=== PATIENT | female | born 1935 | race Caucasian/White ===

== ENCOUNTER 2017-07-30 11:16 | Emergency (ER) | payer MEDICARE ==
[~2017-07-30] VITALS: Ht 167.6 cm; Wt 81.8 kg
[2017-07-30 12:00] LABS: HEMATOCRIT 35.8 % (37.0-47.0); HEMOGLOBIN 11.6 g/dl (12.0-16.0); IMMATURE GRANULOCYTES 0.9 % (0.0-1.0); MEAN CELL VOLUME 93.7 fL CALC (80.0-100.0); MEAN CORPUSCULAR HGB 30.4 pG CALC (26.0-32.0); MEAN CORPUSCULAR HGB CONC 32.4 g/L CALC (32.0-36.0); NEUT# 4.85 thou/uL (2.00-7.15); RED BLOOD COUNT 3.82 mill/uL (4.20-5.60); RED CELL DISTRI WIDTH 13.3 % (11.5-15.5)
[2017-07-30] MEDS ORDERED: ASPIRIN81 MG PO (12:42)
[2017-07-30] MEDS ORDERED: LIPITOR40 M1 PO (12:43)
[2017-07-30] MEDS ORDERED: ATENOLOL50 MG PO (12:43)
[2017-07-30] MEDS ORDERED: BENAZEPRIL10 MG PO (12:44)
[2017-07-30] MEDS ORDERED: CYMBALTA30 MG PO (12:44)
[2017-07-30] MEDS ORDERED: CORRECTOL100 MG PO (12:45)
[2017-07-30] MEDS ORDERED: ROPINIROLE0.5 MG PO (12:46)
[2017-07-30] MEDS ORDERED: MIRTAZAPINE7.5 MG PO (12:46)
[2017-07-30] MEDS ORDERED: VITAMIN C250 MG PO (12:47)
[2017-07-30] MEDS ORDERED: FERROUS SULF325 M3 PO (12:47)
[2017-07-30 13:05] LABS: ALBUMIN 3.4 g/dL (3.2-5.0); ALKALINE PHOSPHATASE 77 u/l (38-126); ANION GAP 15 (6-22 (CALC)); BILIRUBIN, TOTAL 0.3 mg/dL (0.0-1.4); BUN 18 mg/dL (8-23); BUN/CREATININE RATIO 19 (12-20 (CALC)); CARBON DIOXIDE 28 mmol/l (22-30); CHLORIDE 107 mmol/l (95-108); GFR 53 ML/MIN (>=60 (CALC)); GFR FOR AFR.AMER. > 60 ML/MIN (>=60 (CALC)); LIPASE 100 u/l (23-300); MAGNESIUM 1.8 mg/dL (1.6-2.3); POTASSIUM 4.8 mmol/l (3.5-5.1); SGOT/AST 21 u/l (9-36); SGPT/ALT 30 u/l (11-66); SODIUM 145 mmol/l (137-146); TOTAL PROTEIN 6.5 g/dL (6.3-8.2)
[2017-07-30 14:08] VITALS: BP 147/63
== END 2017-07-30 14:06 | disposition home or self-care (01) ==
LOC: ED 11:16
PROVIDERS: Family Medicine
DX: Z03.89 Encounter for observation for other suspected diseases and conditions ruled out (principal); I11.9 Hypertensive heart disease without heart failure; E78.5 Hyperlipidemia, unspecified; F32.9 Major depressive disorder, single episode, unspecified; Z86.73 Personal history of transient ischemic attack (TIA), and cerebral infarction without residual deficits

== ENCOUNTER 2017-08-22 18:06 | Observation (INO) | payer MEDICARE ==
[~2017-08-22] VITALS: Ht 167.6 cm; Wt 70.5 kg
[~2017-08-22 18:06] MED LIST: ASPIRIN81 MG PO; ATENOLOL50 MG PO; BENAZEPRIL10 MG PO; CORRECTOL100 MG PO; CYMBALTA30 MG PO; FERROUS SULF325 M3 PO; LIPITOR40 M1 PO; MIRTAZAPINE7.5 MG PO; ROPINIROLE0.5 MG PO; VITAMIN C250 MG PO
[2017-08-22] MEDS ORDERED: MEMANTINE HCL10 MG PO (18:24)
[2017-08-22] MEDS ORDERED: BENAZEPRIL10 MG PO (18:27)
[2017-08-22 18:40] LABS: HEMATOCRIT 39.5 % (37.0-47.0); HEMOGLOBIN 12.9 g/dl (12.0-16.0); IMMATURE GRANULOCYTES 0.5 % (0.0-1.0); MEAN CELL VOLUME 92.3 fL CALC (80.0-100.0); MEAN CORPUSCULAR HGB 30.1 pG CALC (26.0-32.0); MEAN CORPUSCULAR HGB CONC 32.7 g/L CALC (32.0-36.0); NEUT# 8.15 thou/uL (2.00-7.15); RED BLOOD COUNT 4.28 mill/uL (4.20-5.60); RED CELL DISTRI WIDTH 12.7 % (11.5-15.5)
[2017-08-22 18:57] LABS: ALKALINE PHOSPHATASE 92 u/l (38-126); ANION GAP 18 (6-22 (CALC)); BILIRUBIN, TOTAL 0.4 mg/dL (0.0-1.4); BUN 24 mg/dL (8-23); BUN/CREATININE RATIO 27 (12-20 (CALC)); CARBON DIOXIDE 23 mmol/l (22-30); CHLORIDE 108 mmol/l (95-108); CREATININE 0.9 mg/dL (0.5-1.0); GFR 60 ML/MIN (>=60 (CALC)); GFR FOR AFR.AMER. > 60 ML/MIN (>=60 (CALC)); LIPASE 172 u/l (23-300); POTASSIUM 4.7 mmol/l (3.5-5.1); SGPT/ALT 31 u/l (11-66); SODIUM 144 mmol/l (137-146); TOTAL PROTEIN 7.6 g/dL (6.3-8.2)
[2017-08-22 18:59] LABS: SGOT/AST 37 u/l (9-36)
[2017-08-22 19:40] LABS: URINE BILIRUBIN - DIPSTICK NEGATIVE (NEGATIVE); URINE BLOOD DIPSTICK NEGATIVE (NEGATIVE); URINE COLOR YELLOW; URINE GLUCOSE - DIPSTICK NEGATIVE (NEGATIVE); URINE KETONE NEGATIVE (NEGATIVE); URINE LEUK ESTERASE NEGATIVE (NEGATIVE); URINE NITRITE - DIPSTICK NEGATIVE (Negative); URINE PH 5.5 (4.5-8.0); URINE PROTEIN - DIPSTICK TRACE mg/dL (NEG-TRACE); URINE UROBILINOGEN - DIPSTICK 0.2 E.U./dL (0.2)
[2017-08-22 19:41] LABS: URINE CLARITY CLEAR
[2017-08-22 22:05] VITALS: BP 145/84
[2017-08-22 23:58] VITALS: BP 134/84
[2017-08-23 04:43] VITALS: BP 119/67
[2017-08-23 08:07] VITALS: BP 127/70
[2017-08-23 16:08] VITALS: BP 126/65
== END 2017-08-23 17:25 ==
LOC: ED 18:06 → ED-I 21:00 → ED 21:41 → MS2 21:42
PROVIDERS: Emergency Medicine; ADMIT Internal Medicine; ATTEND Internal Medicine
DX: R10.84 Generalized abdominal pain (principal); E78.5 Hyperlipidemia, unspecified; F32.9 Major depressive disorder, single episode, unspecified; I69.320 Aphasia following cerebral infarction; I11.9 Hypertensive heart disease without heart failure; G25.81 Restless legs syndrome; M19.90 Unspecified osteoarthritis, unspecified site; G30.9 Alzheimer's disease, unspecified; F02.80 Dementia in other diseases classified elsewhere, unspecified severity, without behavioral disturbance, psychotic disturbance, mood disturbance, and anxiety
CPT/HCPCS: Q9967

== ENCOUNTER 2018-04-21 12:06 | Emergency (ER) | payer MEDICARE ==
[~2018-04-21] VITALS: Ht 167.6 cm; Wt 79.5 kg
[~2018-04-21 12:06] MED LIST changes: +MEMANTINE HCL10 MG PO
[2018-04-21] MEDS ORDERED: MOTRIN400 MG PO (12:24)
[2018-04-21] MEDS ORDERED: AUGMENTIN875TAB PO (12:24)
[2018-04-21 12:46] VITALS: BP 177/110
== END 2018-04-21 12:53 | disposition home or self-care (01) ==
LOC: ED 12:06
DX: K08.89 Other specified disorders of teeth and supporting structures (principal); I10 Essential (primary) hypertension; F32.9 Major depressive disorder, single episode, unspecified; E78.5 Hyperlipidemia, unspecified; M19.90 Unspecified osteoarthritis, unspecified site; G30.9 Alzheimer's disease, unspecified; F02.80 Dementia in other diseases classified elsewhere, unspecified severity, without behavioral disturbance, psychotic disturbance, mood disturbance, and anxiety; K08.139 Complete loss of teeth due to caries, unspecified class; R13.10 Dysphagia, unspecified; Z86.73 Personal history of transient ischemic attack (TIA), and cerebral infarction without residual deficits

== ENCOUNTER 2019-04-03 17:53 | Emergency (ER) | payer MEDICARE ==
[~2019-04-03] VITALS: Ht 167.6 cm; Wt 92.0 kg
[~2019-04-03 17:53] MED LIST changes: +AUGMENTIN875TAB PO; +MOTRIN400 MG PO
[2019-04-03 19:25] VITALS: BP 160/90
== END 2019-04-03 19:27 | disposition home or self-care (01) ==
LOC: ED 17:53
DX: S60.511A Abrasion of right hand, initial encounter (principal); R47.01 Aphasia; I10 Essential (primary) hypertension; G30.9 Alzheimer's disease, unspecified; F02.80 Dementia in other diseases classified elsewhere, unspecified severity, without behavioral disturbance, psychotic disturbance, mood disturbance, and anxiety; X58.XXXA Exposure to other specified factors, initial encounter; Y92.009 Unspecified place in unspecified non-institutional (private) residence as the place of occurrence of the external cause; Z86.73 Personal history of transient ischemic attack (TIA), and cerebral infarction without residual deficits

== ENCOUNTER 2019-11-21 10:01 | Emergency (ER) | payer MEDICARE ==
[~2019-11-21] VITALS: Ht 167.6 cm; Wt 76.4 kg
[2019-11-21 10:57] LABS: HEMATOCRIT 37.5 % (37.0-47.0); HEMOGLOBIN 11.8 g/dl (12.0-16.0); IMMATURE GRANULOCYTES 0.6 % (0.0-5.0); MEAN CELL VOLUME 89.9 fL CALC (80.0-100.0); MEAN CORPUSCULAR HGB 28.3 pG CALC (26.0-32.0); MEAN CORPUSCULAR HGB CONC 31.5 g/dL CAL (32.0-36.0); NEUT# 4.1 thou/uL (2.00-7.15); RED BLOOD COUNT 4.17 mill/uL (4.20-5.60); RED CELL DISTRI WIDTH 13.2 % (11.5-15.5)
[2019-11-21 11:20] LABS: ANION GAP 10 (6-22 (CALC)); BUN 33 mg/dL (8-23); BUN/CREATININE RATIO 32 (12-20 (CALC)); CARBON DIOXIDE 29 mmol/l (22-30); CHLORIDE 105 mmol/l (95-108); GFR 53 ML/MIN (>=60 (CALC)); GFR FOR AFR.AMER. > 60 ML/MIN (>=60 (CALC)); POTASSIUM 3.8 mmol/l (3.5-5.1); SODIUM 140 mmol/l (137-146)
[2019-11-21] MEDS ORDERED: BENAZEPRIL40 M1 PO (11:36)
[2019-11-21] MEDS ORDERED: PRILOSEC20 MG/CAP PO (11:37)
[2019-11-21] MEDS ORDERED: PLAVIX75 MG PO (11:37)
[2019-11-21] MEDS ORDERED: TOPROL XL100 MG PO (11:39)
[2019-11-21] MEDS ORDERED: ATORVASTATIN CA40 MG PO (11:39)
[2019-11-21 12:13] VITALS: BP 166/79
== END 2019-11-21 12:13 | disposition home or self-care (01) ==
LOC: ED 10:01
PROVIDERS: Family Medicine
DX: M79.672 Pain in left foot (principal); M79.671 Pain in right foot; I10 Essential (primary) hypertension; G30.9 Alzheimer's disease, unspecified; F02.80 Dementia in other diseases classified elsewhere, unspecified severity, without behavioral disturbance, psychotic disturbance, mood disturbance, and anxiety; Z86.73 Personal history of transient ischemic attack (TIA), and cerebral infarction without residual deficits

== ENCOUNTER 2019-12-06 17:23 | Emergency (ER) | payer MEDICARE ==
[~2019-12-06] VITALS: Ht 167.6 cm; Wt 75.0 kg
[~2019-12-06 17:23] MED LIST changes: +ATORVASTATIN CA40 MG PO; +BENAZEPRIL40 M1 PO; +PLAVIX75 MG PO; +PRILOSEC20 MG/CAP PO; +TOPROL XL100 MG PO
[2019-12-06 18:12] LABS: HEMATOCRIT 36.2 % (37.0-47.0); HEMOGLOBIN 11.5 g/dl (12.0-16.0); IMMATURE GRANULOCYTES 0.4 % (0.0-5.0); MEAN CELL VOLUME 89.4 fL CALC (80.0-100.0); MEAN CORPUSCULAR HGB 28.4 pG CALC (26.0-32.0); MEAN CORPUSCULAR HGB CONC 31.8 g/dL CAL (32.0-36.0); NEUT# 3.63 thou/uL (2.00-7.15); RED BLOOD COUNT 4.05 mill/uL (4.20-5.60); RED CELL DISTRI WIDTH 13.5 % (11.5-15.5)
[2019-12-06 18:24] LABS: ALBUMIN 3.8 g/dL (3.2-5.0); ALKALINE PHOSPHATASE 88 u/l (38-126); ANION GAP 9 (6-22 (CALC)); BILIRUBIN, TOTAL 0.5 mg/dL (0.0-1.4); BUN 36 mg/dL (8-23); BUN/CREATININE RATIO 33 (12-20 (CALC)); CARBON DIOXIDE 27 mmol/l (22-30); CHLORIDE 107 mmol/l (95-108); CREATININE 1.1 mg/dL (0.5-1.0); GFR 47 ML/MIN (>=60 (CALC)); GFR FOR AFR.AMER. 57 ML/MIN (>=60 (CALC)); POTASSIUM 3.9 mmol/l (3.5-5.1); SGOT/AST 26 u/l (9-36); SODIUM 139 mmol/l (137-146); TOTAL PROTEIN 6.6 g/dL (6.3-8.2)
[2019-12-06 18:25] LABS: URINE BILIRUBIN - DIPSTICK NEGATIVE (NEGATIVE); URINE BLOOD DIPSTICK NEGATIVE (NEGATIVE); URINE COLOR YELLOW; URINE GLUCOSE - DIPSTICK NEGATIVE (NEGATIVE); URINE KETONE NEGATIVE (NEGATIVE); URINE LEUK ESTERASE NEGATIVE (NEGATIVE); URINE NITRITE - DIPSTICK NEGATIVE (Negative); URINE PH 5.5 (4.5-8.0); URINE PROTEIN - DIPSTICK NEGATIVE (NEG-TRACE); URINE UROBILINOGEN - DIPSTICK 0.2 E.U./dL (0.2)
[2019-12-06 18:36] LABS: MYOGLOBIN 50 ng/mL (0 - 62)
[2019-12-06] MEDS ORDERED: NAPROXEN500 MG PO (18:52)
[2019-12-06] MEDS ORDERED: FLEXERIL PO (18:52)
[2019-12-06 19:10] VITALS: BP 159/69
== END 2019-12-06 19:10 | disposition home or self-care (01) ==
LOC: ED 17:23
PROVIDERS: Emergency Medicine
DX: M79.10 Myalgia, unspecified site (principal); I69.320 Aphasia following cerebral infarction; I10 Essential (primary) hypertension; G30.9 Alzheimer's disease, unspecified; F02.80 Dementia in other diseases classified elsewhere, unspecified severity, without behavioral disturbance, psychotic disturbance, mood disturbance, and anxiety; I48.91 Unspecified atrial fibrillation

== ENCOUNTER 2020-07-20 | Inpatient (IN) | payer MEDICARE ==
[2020-07-19 12:12] LABS: HEMATOCRIT 34.2 % (37.0-47.0); HEMOGLOBIN 10.6 g/dl (12.0-16.0); IMMATURE GRANULOCYTES 0.4 % (0.0-5.0); MEAN CELL VOLUME 92.4 fL CALC (80.0-100.0); MEAN CORPUSCULAR HGB 28.6 pG CALC (26.0-32.0); NEUT# 5.42 thou/uL (2.00-7.15); RED BLOOD COUNT 3.7 mill/uL (4.20-5.60); RED CELL DISTRI WIDTH 15.7 % (11.5-15.5)
[2020-07-19 12:44] LABS: ACT PARTIAL THROMBO TIME 27.4 SECONDS (20.0-32.5); INTERNATIONAL NORMALIZED RATIO 1.1 RATIO (0.7-1.3); PROTHROMBIN TIME 11.1 SECONDS (9.0-12.5)
[2020-07-19 12:53] LABS: ALBUMIN 4.1 g/dL (3.2-5.0); ALKALINE PHOSPHATASE 94 u/l (38-126); ANION GAP 12 (6-22 (CALC)); BILIRUBIN, TOTAL 1.1 mg/dL (0.0-1.4); BUN 21 mg/dL (8-23); BUN/CREATININE RATIO 24 (12-20 (CALC)); CARBON DIOXIDE 23 mmol/l (22-30); CHLORIDE 107 mmol/l (95-108); CREATININE 0.9 mg/dL (0.5-1.0); GFR 60 ML/MIN (>=60 (CALC)); GFR FOR AFR.AMER. > 60 ML/MIN (>=60 (CALC)); LIPASE 133 u/l (23-300); POTASSIUM 3.8 mmol/l (3.5-5.1); SODIUM 139 mmol/l (137-146); TOTAL PROTEIN 7.1 g/dL (6.3-8.2)
[2020-07-19 13:00] LABS: D-DIMER 0.7 mg/L (0.19-0.60); SGOT/AST 30 u/l (9-36)
[2020-07-19 16:42] LABS: URINE BILIRUBIN - DIPSTICK NEGATIVE (NEGATIVE); URINE BLOOD DIPSTICK NEGATIVE (NEGATIVE); URINE COLOR YELLOW; URINE GLUCOSE - DIPSTICK NEGATIVE (NEGATIVE); URINE KETONE NEGATIVE (NEGATIVE); URINE LEUK ESTERASE NEGATIVE (NEGATIVE); URINE PROTEIN - DIPSTICK NEGATIVE (NEG-TRACE); URINE UROBILINOGEN - DIPSTICK 0.2 E.U./dL (0.2)
[2020-07-19 16:44] LABS: URINE NITRITE - DIPSTICK NEGATIVE (Negative)
[2020-07-19 16:52] VITALS: BP 150/101
[2020-07-19 19:00] VITALS: BP 138/85
[2020-07-20] VITALS (7 sets, daily range): BP systolic 132–144; BP diastolic 67–100
[~2020-07-20] MED LIST changes: +ELIQUIS5 MG PO; +FLEXERIL PO; +NAPROXEN500 MG PO
[2020-07-20 05:37] LABS: HEMATOCRIT 35.3 % (37.0-47.0); MEAN CELL VOLUME 91.2 fL CALC (80.0-100.0); MEAN CORPUSCULAR HGB 28.4 pG CALC (26.0-32.0); MEAN CORPUSCULAR HGB CONC 31.2 g/dL CAL (32.0-36.0); RED BLOOD COUNT 3.87 mill/uL (4.20-5.60); RED CELL DISTRI WIDTH 15.7 % (11.5-15.5)
[2020-07-20 06:04] LABS: BUN 19 mg/dL (8-23); BUN/CREATININE RATIO 21 (12-20 (CALC)); CALCULATED LDLCHOLESTEROL 67 mg/dL (62-129 (CALC)); CHLORIDE 105 mmol/l (95-108); CHOLESTEROL HDL RATIO 3.5 (<4.4 (CALC)); CREATININE 0.9 mg/dL (0.5-1.0); GFR 60 ML/MIN (>=60 (CALC)); GFR FOR AFR.AMER. > 60 ML/MIN (>=60 (CALC)); HDL CHOLESTEROL 38 mg/dL (>=40); MAGNESIUM 1.7 mg/dL (1.6-2.3); POTASSIUM 3.7 mmol/l (3.5-5.1); SODIUM 140 mmol/l (137-146); TOTAL CHOLESTEROL 132 mg/dl (0-199); TOTAL TRIGLYCERIDES 135 mg/dl (30-149); VLDL CHOLESTROL 27 mg/dl (0-48 (CALC))
[2020-07-20 06:07] LABS: ANION GAP 11 (6-22 (CALC)); CARBON DIOXIDE 28 mmol/l (22-30)
[2020-07-21 05:58] VITALS: BP 107/57
[2020-07-21 07:20] VITALS: BP 107/69
[2020-07-21 10:24] VITALS: BP 142/90
[2020-07-21] MEDS ORDERED: CEFDINIR300 MG PO (12:00)
[2020-07-21] MEDS ORDERED: ZPAK PO (12:01)
[2020-07-21] MEDS ORDERED: LASIX 20 MG TAB20 MG PO (12:02)
[2020-07-21 15:35] VITALS: BP 117/79
== END 2020-07-21 16:43 | disposition home health service (06) | DRG 291 ==
PROVIDERS: Nurse Practitioner; ADMIT Internal Medicine
DX: I11.0 Hypertensive heart disease with heart failure (principal); J18.9 Pneumonia, unspecified organism; J91.8 Pleural effusion in other conditions classified elsewhere; I50.9 Heart failure, unspecified; E78.5 Hyperlipidemia, unspecified; G30.9 Alzheimer's disease, unspecified; F02.80 Dementia in other diseases classified elsewhere, unspecified severity, without behavioral disturbance, psychotic disturbance, mood disturbance, and anxiety; I69.920 Aphasia following unspecified cerebrovascular disease; I25.10 Atherosclerotic heart disease of native coronary artery without angina pectoris; I48.91 Unspecified atrial fibrillation; K21.9 Gastro-esophageal reflux disease without esophagitis; M19.90 Unspecified osteoarthritis, unspecified site; K80.20 Calculus of gallbladder without cholecystitis without obstruction; F32.9 Major depressive disorder, single episode, unspecified; G25.81 Restless legs syndrome; Z87.440 Personal history of urinary (tract) infections; Z95.5 Presence of coronary angioplasty implant and graft; Z79.01 Long term (current) use of anticoagulants; Z95.820 Peripheral vascular angioplasty status with implants and grafts; Z20.822 Contact with and (suspected) exposure to COVID-19
CPT/HCPCS: G0378; J1650; J2060; Q9967

== ENCOUNTER 2022-12-07 11:42 | Inpatient (IN) | payer MEDICARE ==
[~2022-12-07] VITALS: Ht 167.6 cm; Wt 68.2 kg
[2022-12-07] VITALS (10 sets, daily range): BP systolic 115–154; BP diastolic 56–87
[~2022-12-07 11:42] MED LIST changes: +CEFDINIR300 MG PO; +LASIX 20 MG TAB20 MG PO; +ZPAK PO
--- NOTE | 2022-12-07 11:50 | NUR ---
PT TO ROOM 14 VIA W/C, SON-IN-LAW AT SIDE WITH HOME MEDS, CALL LIGHT IN REACH, PROVIDER NOTIFIED.
[2022-12-07 12:19] LABS: BASO% 0.4 % (0-3); EOS% 1.2 % (0-8); HEMATOCRIT 37.4 % (37.0-47.0); HEMOGLOBIN 12.8 g/dl (12.0-16.0); IMMATURE GRANULOCYTES 0.5 % (0.0-5.0); LYMPH% 25.3 % (15-41); MEAN CORPUSCULAR HGB 28.8 pG CALC (26.0-32.0); MEAN CORPUSCULAR HGB CONC 34.2 g/dL CAL (32.0-36.0); MONO% 11.2 % (2-13); NEUT# 6.23 thou/uL (2.00-7.15); NEUT% 61.4 % (42-76); RED BLOOD COUNT 4.44 mill/uL (4.20-5.60); RED CELL DISTRI WIDTH 14.1 % (11.5-15.5)
[2022-12-07 12:21] LABS: MEAN CELL VOLUME 84.2 fL CALC (80.0-100.0)
[2022-12-07 12:31] LABS: ALBUMIN 3.9 g/dL (3.2-5.0); BILIRUBIN, TOTAL 1.4 mg/dL (0.02-1.3); TOTAL PROTEIN 7.1 g/dL (6.3-8.2)
[2022-12-07 12:32] LABS: CREATININE 1.9 mg/dL (0.5-1.0); POTASSIUM 4.9 mmol/l (3.5-5.1)
[2022-12-07] MEDS ORDERED: TENORMIN25 MG PO (12:32)
[2022-12-07] MEDS ORDERED: PROTONIX40 M2 PO (12:33)
[2022-12-07] MEDS ORDERED: LASIX 40 MG TAB40 MG PO (12:35)
--- NOTE | 2022-12-07 12:56 | NUR ---
Reassessment of patient completed. No distress noted. VSS, FAMILY NOT IN ROOM, I/V FLUIDS STARTED ORDERD, PERIWIC APPLIED S/P STRAIGHT CATH, PT RESTING WITH EYES CLOSED, RESP EVEN/UNLABORED.
--- NOTE | 2022-12-07 13:00 | NUR ---
IN ROOM TO START FLUIDS PER ORDERS, VSS, FAMILY AT BEDSIDE, CALL LIGHT IN REACH. PT CALM AND RESTING.
[2022-12-07 13:14] LABS: URINE BILIRUBIN - DIPSTICK Negative (NEGATIVE); URINE BLOOD DIPSTICK Trace-intact (NEGATIVE); URINE GLUCOSE - DIPSTICK Negative (NEGATIVE); URINE KETONE Negative (NEGATIVE); URINE NITRITE - DIPSTICK Positive (Negative); URINE PH 5.5 (4.5-8.0); URINE PROTEIN - DIPSTICK Trace mg/dL (NEG-TRACE); URINE SPECIFIC GRAVITY <=1.005; URINE UROBILINOGEN - DIPSTICK 0.2 E.U./dL (0.2)
[2022-12-07 13:15] LABS: URINE COLOR Straw; URINE LEUK ESTERASE Large (NEGATIVE)
[2022-12-07 13:16] LABS: URINE EPITHELIAL CELLS MANY EPI/hpf (0-FEW); URINE RBC 0-2 RBC/hpf (0-5)
[2022-12-07 13:17] LABS: URINE BACTERIA MANY hpf
--- NOTE | 2022-12-07 13:30 | NUR ---
IN ROOM TO OBTAIN I/V, VSS, NO COMPLAINTS AT THIS, CALL LIGHT IN REACH, [id number] AT BEDSIDE.
--- NOTE | 2022-12-07 14:00 | NUR ---
Reassessment of patient completed. No distress noted. VSS, IN ROOM TO START ANTIBIOTICS PER ORDER, PROVIDER IN ROOM TO DISCUSS PLAN OF CARE.
--- NOTE | 2022-12-07 14:45 | NUR ---
REPORT CALLED TO [facility] RO[facility] NURSE ADY, PT TO [facility] ROOM 260 AT APPROX 1455, ON TELE # 13, VSS, PERIWIC IN PLACE, PT WENT VIA STRETCHER, I/V FLUIDS N/S @ 125/HR.
--- NOTE | 2022-12-07 14:59 | NUR ---
Discharge instructions given. Patient verbalizes understanding of same. Discharged in stable condition via Wheelchair to Home with relative. All belongings sent with pt.
--- NOTE | 2022-12-07 15:37 | NUR ---
PT BROUGHT UP FROM ER VIA STR @2130. PT IS NONVERBAL BUT ABLE TO CUMMUNICATE THROUGH GRUNTING, HEAD NODS, AND FACIAL EXPRESSIONS. PT IS A/OX3. ON RM AIR. PT WAS NOT ABLE TO AMBULATE INTO THE BED, ASSISTED WITH TRANSFERRING PT INTO BED. ASSESSED PT SKIN, REDNESS AND YEAST NOTED UNDER BREAST AREA, REDNESS NOTED ON BOTTOM AREA, BRUISING NOTED ON LEFT SIDE OF BACK. PHOTOS OBTAINED AND CHARTED. PT LUNG SOUNDS ARE CLEAR AT THIS TIME. TELE BOX#[address]. PT HAS IV SITE NOTED INTACT WITH FLUIDS RUNNING PER EMAR. AFTER ASSESSMENT COMPLETION PT WAS ABLE TO STAND WITH 2 ASSIST ONTO SCALE. PT WEIGHT 68.2KG. OPTIFOAM PAD APPLIED TO BOTTOM PRECAUTION. EDUCATED PT ON PLAN OF CARE, MED SCHEDULE AND SAFETY PRECAUTIONS. CALL LIGHT WITHIN REACH AND SAFETY PRECAUTIONS IN PLACE.
[2022-12-07 21:08] LABS: ALBUMIN 3.3 g/dL (3.2-5.0); BILIRUBIN, TOTAL 1.1 mg/dL (0.02-1.3); CREATININE 1.6 mg/dL (0.5-1.0); POTASSIUM 5.1 mmol/l (3.5-5.1); TOTAL PROTEIN 5.9 g/dL (6.3-8.2)
[2022-12-08] VITALS (7 sets, daily range): BP systolic 121–158; BP diastolic 41–81
--- NOTE | 2022-12-08 00:01 | NUR ---
PT PULLED IV SALINE LOCK OUT ON PREVIOUS SHIFT. REFUSES TO LET NURSE PUT ANOTHER SALINE LOCK IN. GETS AGITATED AND SCREAMS.
[2022-12-08 05:14] LABS: BASO% 0.6 % (0-3); EOS% 1.9 % (0-8); HEMATOCRIT 34.6 % (37.0-47.0); HEMOGLOBIN 11.7 g/dl (12.0-16.0); IMMATURE GRANULOCYTES 1.2 % (0.0-5.0); LYMPH% 22.4 % (15-41); MEAN CELL VOLUME 86.3 fL CALC (80.0-100.0); MEAN CORPUSCULAR HGB 29.2 pG CALC (26.0-32.0); MEAN CORPUSCULAR HGB CONC 33.8 g/dL CAL (32.0-36.0); MONO% 13.2 % (2-13); NEUT# 4.22 thou/uL (2.00-7.15); NEUT% 60.7 % (42-76); RED BLOOD COUNT 4.01 mill/uL (4.20-5.60); RED CELL DISTRI WIDTH 14.4 % (11.5-15.5)
[2022-12-08 05:30] LABS: ALBUMIN 3.1 g/dL (3.2-5.0); CREATININE 1.6 mg/dL (0.5-1.0); MAGNESIUM 1.6 mg/dL (1.6-2.3); POTASSIUM 5.1 mmol/l (3.5-5.1); TOTAL PROTEIN 5.6 g/dL (6.3-8.2)
--- NOTE | 2022-12-08 07:00 | NUR ---
RECEIVED BEDSIDE REPORT FROM ISMAEL HANSON. PT RESTING IN BED WITH EYES CLOSED. ALL SAFETY MEASURES IN PLACE. VSS. NO NEEDS AT THIS TIME.
--- NOTE | 2022-12-08 20:00 | NUR ---
RECEIVED REPORT FROM NURSE EBONI PATIENT HAS NO IV, PATIENT IS NON VERBAL BUT RESPONDS TO NAME, HOOKED ON TELEMETRY BUT REMOVES TELE, PATIENT CONFUSED, ABLE TO REDIRECT, RASH NOTED UNDER BREAST NYSTATIN ORDERED, NEW IOV REINSERTED ON RT WRIST G 22, NS@C 100CC/HR BED ALAMR IN PLACE.
--- NOTE | 2022-12-09 | NUR ---
PATIENT RESTING WITH EYES CLOSED, BREATHING EVEN UNLABORED, NO DISCOMFORTS NOTED AT THIS TIME, CALL LIGHT IN REACH.BED ALRM IN PLACE.
--- NOTE | 2022-12-09 03:43 | NUR ---
INCONTINENT CARE PROVIDED PATIENT NOT IN DSITRESS, BREATHING EVEN UNLABORED, CALL LIGHT IN REACH.
[2022-12-09 05:25] VITALS: BP 121/66
[2022-12-09 06:30] VITALS: BP 132/74
--- NOTE | 2022-12-09 07:00 | NUR ---
RECEIVED BEDSIDE REPORT FROM ISMAEL DELGADO. PT LYING IN BED WATCHING TELEVISION. ALL SAFETY MEASURES IN PLACE. VSS. NO NEEDS AT THIS TIME.
[2022-12-09 10:45] VITALS: BP 148/73
[2022-12-09 15:02] VITALS: BP 139/62
[2022-12-09] MEDS ORDERED: KEFLEX500 MG PO (17:40)
== END 2022-12-09 19:05 | disposition home or self-care (01) | DRG 690 ==
LOC: ED 11:42 → ED-I 13:31 → ED 13:31 → ED-I 13:45 → ED 13:58 → MS2 13:59
PROVIDERS: Family Medicine; Nurse Practitioner Family; ADMIT Student in an Organized Health Care Education/Training Program; ATTEND Student in an Organized Health Care Education/Training Program
DX: N39.0 Urinary tract infection, site not specified (principal); E87.1 Hypo-osmolality and hyponatremia; I69.951 Hemiplegia and hemiparesis following unspecified cerebrovascular disease affecting right dominant side; I48.20 Chronic atrial fibrillation, unspecified; E78.5 Hyperlipidemia, unspecified; G30.9 Alzheimer's disease, unspecified; F02.80 Dementia in other diseases classified elsewhere, unspecified severity, without behavioral disturbance, psychotic disturbance, mood disturbance, and anxiety; I69.920 Aphasia following unspecified cerebrovascular disease; I11.0 Hypertensive heart disease with heart failure; I50.9 Heart failure, unspecified; I25.10 Atherosclerotic heart disease of native coronary artery without angina pectoris; S20.112A Abrasion of breast, left breast, initial encounter; S20.111A Abrasion of breast, right breast, initial encounter; S30.0XXA Contusion of lower back and pelvis, initial encounter; F32.A Depression, unspecified; B96.20 Unspecified Escherichia coli [E. coli] as the cause of diseases classified elsewhere; I25.2 Old myocardial infarction; X58.XXXA Exposure to other specified factors, initial encounter; Z95.820 Peripheral vascular angioplasty status with implants and grafts; Z91.81 History of falling; Z95.5 Presence of coronary angioplasty implant and graft; Z20.822 Contact with and (suspected) exposure to COVID-19